=== PATIENT | male | born 2000 | race African-American/Black ===

== ENCOUNTER 2019-12-27 18:03 | Emergency (ER) | payer OTHER ==
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
[2019-12-27] MEDS ORDERED: IBUPROFEN 600 MG TABLET PO ONE (20:14)
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
[2019-12-27 20:55] LABS: AMORPHOUS SEDIMENT,URINE TRACE /HPF; APPEARANCE,URINE CLOUDY; BILIRUBIN,URINE NEGATIVE (NEGATIVE); COLOR,URINE YELLOW; GLUCOSE, URINE NEGATIVE (NEGATIVE); KETONES,URINE NEGATIVE (NEGATIVE); LEUKOCYTE ESTERASE,URINE NEGATIVE (NEGATIVE); NITRITE,URINE NEGATIVE (NEGATIVE); PROTEIN,URINE 30 mg/dL (NEGATIVE)
[2019-12-27 21:07] VITALS: BP 110/64
== END 2019-12-27 21:11 | disposition home or self-care (01) ==
LOC: ER 18:03
DX: M54.5 Low back pain (principal); R10.9 Unspecified abdominal pain; V43.52XA Car driver injured in collision with other type car in traffic accident, initial encounter
CPT/HCPCS: 72110; 81001; 99284